=== PATIENT | male | born 1970 | race Caucasian/White ===

== ENCOUNTER 2016-06-01 11:48 | Emergency (ER) | payer BC ==
[~2016-06-01] VITALS: Ht 198.1 cm; Wt 115.7 kg
[2016-06-01 13:28] LABS: OBC FLU VALID
[2016-06-01 13:31] LABS: BASO % 0 % (0-3); EOS % 0 % (0-3); HEMATOCRIT 52.1 % (39.0-53.0); HEMOGLOBIN 17.8 g/dL (13.0-17.5); LYMPH # 0.7 x10^3/uL (1.0-4.8); LYMPH % 10 % (24-48); MEAN CORPUSCULAR HEMOGLOBIN 30 pg (25-35); MEAN CORPUSCULAR HGB CONC 34 g/dL (31-37); MEAN CORPUSCULAR VOLUME 88 fL (79-100); MONO % 8 % (0-9); NEUT % 82 % (31-73); PLATELET COUNT 144 x10^3/uL (140-400); RED BLOOD COUNT 5.91 x10^6/uL (4.30-5.70); RED CELL DISTRIBUTION WIDTH 15.9 % (11.5-14.5); WHITE BLOOD COUNT 7.7 x10^3/uL (4.0-11.0)
--- NOTE | 2016-06-01 13:38 | RAD ---
Exam: AP portable chest. History: Chest pain, cough, shortness of breath. Comparison: None. Findings: The heart and mediastinal structures are within normal limits for size. Lungs are without infiltrate. No pneumothorax or pleural effusion is appreciated. Right nipple ring is seen. Impression: 1. No acute cardiopulmonary process.
[2016-06-01] MEDS ORDERED: IV NORMAL SALINE 1000ML BAG 1,000 ML IV ONE (13:45)
[2016-06-01] MEDS ORDERED: ACETAMINOPHEN 500 MG TABLET PO ONE (13:45)
[2016-06-01 13:50] LABS: CREATININE 1.3 mg/dL (0.7-1.3); GFR 59.2; POTASSIUM 4.4 mmol/L (3.5-5.1)
[2016-06-01 13:54] LABS: ALBUMIN 3.5 g/dL (3.4-5.0); ALBUMIN/GLOBULIN RATIO 1.1 (1.0-1.7); TOTAL PROTEIN 6.7 g/dL (6.4-8.2)
[2016-06-01 14:05] LABS: NEGATIVE OBC MONO NEG; POSITIVE OBC MONO POS
[2016-06-01 14:53] LABS: NEGATIVE OBC STREP NEG; POSITIVE OBC STREP POS
--- NOTE | 2016-06-01 14:59 | EKG ---
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
[2016-06-01 15:02] LABS: BILIRUBIN,URINE NEGATIVE (NEG); GLUCOSE,URINE NEGATIVE (NEG); NITRITE,URINE NEGATIVE (NEG); PH,URINE 7.5; PROTEIN,URINE NEGATIVE (NEG-TRACE)
[2016-06-01 15:13] LABS: BARBITURATES NEG (NEG); BENZODIAZEPINES NEG (NEG); CANNABINOIDS NEG (NEG); COCAINE NEG (NEG); METHADONE NEG (NEG); OPIATES POS (NEG); PHENCYCLIDINE NEG (NEG)
[2016-06-01 15:15] LABS: ETHANOL, URINE NEG (NEG)
--- NOTE | 2016-06-01 15:19 | ED.ADGEN ---
Past Medical History Past Medical History: Other Additional Past Medical Histor: chronic back pain Past Surgical History: No Surgical History Alcohol Use: Occasionally Drug Use: None Adult General Chief Complaint Chief Complaint: FEVER HPI HPI Patient is a 45 year old man, history of chronic back pain, hepatitis that was treated 5 years ago, who presents to the emergency department with complaint of about a week of body aches, nonproductive cough, fever, chills, headache, and generalized malaise. Patient was seen by his primary care provider last week, at that time he was checked for influenza and strep throat, and was started on a course of antibiotics and Flonase. Patient also received a "allergy shot", which he describes as a steroid injection. Patient states he was feeling better earlier this week, but then over the past several days the symptoms have returned. states he had a temperature of 103.0 at home, this was early this morning, he did take acetaminophen, early this morning, has not taken any medications for the past 8-10 hours, it is 99.5 currently. Injury without issue , although there is something of a decreased appetite, no GI or complaints. Patient states that he "is always red", when he works outside, is noted to have redness to his skin throughout his entire body, denies any vesicular lesions, involvement of the hands or feet, involvement of the mucosa, any recent travel or surgery, any difficulty with breathing or swallowing, any sick contacts or exposures. Review of Systems Review of Systems Constitutional: Fever, 103.0, this morning, occasional chills, generalized malaise. Eyes: Denies change in visual acuity. [] HENT: Denies nasal congestion or sore throat. [] Respiratory: Denies cough or shortness of breath. [] Cardiovascular: Denies chest pain or edema. [] GI: Denies abdominal pain, nausea, vomiting, bloody stools or diarrhea. [] : Denies dysuria. [] Musculoskeletal: Denies back pain or joint pain. [] Integument: Denies rash. [] Neurologic: Denies headache, focal weakness or sensory changes. [] Endocrine: Denies polyuria or polydipsia. [] Lymphatic: Denies swollen glands. [] Psychiatric: Denies depression or anxiety. [] Current Medications Current Medications Current Medications Medications (Trade) Dose Ordered Sig/Mac Start Time Stop Time Status Last Admin Dose Admin Acetaminophen (Tylenol) 1,000 mg 1X ONCE 06/01/16 13:45 06/01/16 14:33 DC 06/01/16 14:42 1,000 MG Sodium Chloride (Iv Sodium Chloride 0.9% 1000ml Bag) 1,000 ml @ 1,000 mls/hr 1X ONCE 06/01/16 13:45 06/01/16 14:44 DC 06/01/16 14:42 1,000 MLS/HR Allergies Allergies Allergies Coded Allergies Type Severity Reaction Last Updated Verified No Known Drug Allergies 06/01/16 No Physical Exam Physical Exam Constitutional: Well developed, well nourished, no acute distress, non-toxic appearance. [] HENT: Normocephalic, atraumatic, bilateral external ears normal, oropharynx moist, no oral exudates, nose normal. [] Eyes: PERRLA, EOMI, conjunctiva normal, no discharge. [] Neck: Normal range of motion, no tenderness, supple, no stridor. [] Cardiovascular:Heart rate regular rhythm, no murmur, S1, S2, rubs or gallops. [] Lungs & Thorax: Bilateral breath sounds clear to auscultation, no wheezing, rhonchi, rales. Patient cough during examination. [] Abdomen: Bowel sounds normal, soft, no tenderness, no rebound, rigidity, no guarding, no masses, no pulsatile masses. [] Skin: Warm, dry, patient with redness from head to toe, no lesions identified, no involvement of palms or soles or mucosa. Back: No tenderness, no CVA tenderness. [] Extremities: No tenderness, no cyanosis, no clubbing, ROM intact, no edema. [] Neurologic: Alert and oriented X 3, normal motor function, normal sensory function, no focal deficits noted. [] Psychologic: Affect normal, judgement normal, mood normal. [] Current Patient Data Vital Signs Vital Signs Date Time Temp Pulse Resp B/P Pulse Ox O2 Delivery O2 Flow Rate FiO2 06/01/16 12:08 99.3 100 22 126/86 94 Room Air 99.3 Lab Values Laboratory Tests Test 06/01/16 12:56 06/01/16 13:19 06/01/16 13:25 06/01/16 14:00 Influenza Type A Antigen Negative (NEGATIVE) Influenza Type B Antigen Negative (NEGATIVE) Urine Collection Type Unknown Urine Color Yellow Urine Clarity Clear Urine pH 7.5 Urine Specific [place] 1.020 Urine Protein Negativemg/dL (NEG-TRACE) Urine Glucose (UA) Negativemg/dL (NEG) Urine Ketones (Stick) Negativemg/dL (NEG) Urine Blood Negative (NEG) Urine Nitrite Negative (NEG) Urine Bilirubin Negative (NEG) Urine Urobilinogen Dipstick 1.0mg/dL (0.2 mg/dL) Urine Leukocyte Esterase Negative (NEG) Urine RBC 3-5/HPF (0-2) Urine WBC 1-4/HPF (0-4) Urine Bacteria 0/HPF (0-FEW) Urine Mucus Mod/LPF Urine Opiates Screen Pos (NEG) Urine Methadone Screen Neg (NEG) Urine Barbiturates Neg (NEG) Urine Phencyclidine Screen Neg (NEG) Urine Amphetamine/Methamphetamine Neg (NEG) Urine Benzodiazepines Screen Neg (NEG) Urine Cocaine Screen Neg (NEG) Urine Cannabinoids Screen Neg (NEG) Urine Ethyl Alcohol Neg (NEG) White Blood Count 7.7x10^3/uL (4.0-11.0) Red Blood Count 5.91x10^6/uL (4.30-5.70) H Hemoglobin 17.8g/dL (13.0-17.5) H Hematocrit 52.1% (39.0-53.0) Mean Corpuscular Volume 88fL (79-100) Mean Corpuscular Hemoglobin 30pg (25-35) Mean Corpuscular Hemoglobin Concent 34g/dL (31-37) Red Cell Distribution Width 15.9% (11.5-14.5) H Platelet Count 144x10^3/uL (140-400) Neutrophils (%) (Auto) 82% (31-73) H Lymphocytes (%) (Auto) 10% (24-48) L Monocytes (%) (Auto) 8% (0-9) Eosinophils (%) (Auto) 0% (0-3) Basophils (%) (Auto) 0% (0-3) Neutrophils # (Auto) 6.3x10^3uL (1.8-7.7) Lymphocytes # (Auto) 0.7x10^3/uL (1.0-4.8) L Monocytes # (Auto) 0.6x10^3/uL (0.0-1.1) Eosinophils # (Auto) 0.0x10^3/uL (0.0-0.7) Basophils # (Auto) 0.0x10^3/uL (0.0-0.2) Sodium Level 138mmol/L (136-145) Potassium Level 4.4mmol/L (3.5-5.1) Chloride Level 101mmol/L (98-107) Carbon Dioxide Level 30mmol/L (21-32) Anion Gap 7 (6-14) Blood Urea Nitrogen 19mg/dL (8-26) Creatinine 1.3mg/dL (0.7-1.3) Estimated GFR (Cockcroft-Gault) 59.2 BUN/Creatinine Ratio 15 (6-20) Glucose Level 119mg/dL (70-99) H Calcium Level 9.0mg/dL (8.5-10.1) Total Bilirubin 1.0mg/dL (0.2-1.0) Aspartate Amino Transferase (AST) 25U/L (15-37) Alanine Aminotransferase (ALT) 33U/L (16-63) Alkaline Phosphatase 43U/L (46-116) L Troponin I Quantitative < 0.017ng/mL (0.000-0.055) VM-Cbf-A-Type Natriuretic Peptide 258pg/mL (0-124) H Total Protein 6.7g/dL (6.4-8.2) Albumin 3.5g/dL (3.4-5.0) Albumin/Globulin Ratio 1.1 (1.0-1.7) Heterophil Agglutinins Negative (NEGATIVE) Lactic Acid Level 1.1mmol/L (0.4-2.0) Test 06/01/16 14:30 Group A Streptococcus Rapid Negative (NEGATIVE) Laboratory Tests 06/01/16 13:25 Laboratory Tests 06/01/16 13:25 EKG EKG EC: Sinus rhythm, heart rate 84 bpm, upright axis, QTC of 369, KS 154, QRS 86, no ST elevations or depressions, no evidence of acute ST abnormalities. As interpreted by me. [] Radiology/Procedures Radiology/Procedures [] [facility] [address] [place] [address] IMAGING REPORT Signed PATIENT: TATE GRACE ACCOUNT: [id number] : 1970 LOCATION: ER AGE: 45 SEX: M EXAM STATUS: REG ER ORD. PHYSICIAN: SKYLAR ALY DO REASON: CP/Cough/SOB PROCEDURE: PORTABLE CHEST 1V Exam: AP portable chest. History: Chest pain, cough, shortness of breath. Comparison: None. Findings: The heart and mediastinal structures are within normal limits for size. Lungs are without infiltrate. No pneumothorax or pleural effusion is appreciated. Right nipple ring is seen. Impression: 1. No acute cardiopulmonary process. DICTATED and SIGNED BY: ZAID AZAR MD DATE: 06/01/16 1332 CC: SKYLAR ALY DO; PRETTY ROYAL APRN ~ Course & Med Decision Making Course & Med Decision Making Pertinent Labs and Imaging studies reviewed. (See chart for details) Patient complaining of generalized body aches and malaise, is afebrile in the emergency department 99.5 orally, without any antipyretics in the past 10 hours. Chest x-ray unremarkable, laboratory studies reveal no leukocytosis or shift, lactic is within normal limits. On reevaluation, patient states that his headache and body aches are improved after receiving Tylenol, although he states he still feels "pretty crappy". I did speak with Dr. Bartlett of infectious disease, viewed patient's history, presentation, laboratory studies. Patient did not relate any concerning history or factors, laboratory studies not reveal any evidence of acutely concerning findings or inflammation for the patient's symptoms at this time. As stated, patient has no neurologic complaints , no neck stiffness or nuchal rigidity, no indications for lumbar puncture or additional evaluation at this time in the emergency department. Dr. Bartlett is in agreement that the patient may be recovering from a viral syndrome, recommends adding an erythrocyte sedimentation rate and procalcitonin, which he states can be trended as an outpatient with the patient's primary care provider as needed, and additional referral as needed. I did discuss this with patient and at bedside, they're agreeable this plan. I stated patient as he is feeling somewhat better, ambulating difficulty, and denies any additional complaints or concerns. Patient discharged home in stable condition with plan to follow-up with his primary care provider, to continue supportive care at home , and to return to the ED if any new or concerning symptoms develop. Dragon Disclaimer Dragon Disclaimer This electronic medical record was generated, in whole or in part, using a voice recognition dictation system. Departure Impression: Primary Impression: Fever Additional Impression: Malaise and fatigue Disposition: HOME, SELF-CARE Condition: IMPROVED Problem Qualifiers SKYLAR ALY DO Jun 01, 2016 15:19
[2016-06-01 15:21] LABS: BACTERIA,URINE 0 /HPF (0-FEW)
[2016-06-01 16:30] VITALS: BP 121/75
== END 2016-06-01 16:38 | disposition home or self-care (01) ==
LOC: ER 11:48
DX: R50.9 Fever, unspecified (principal); R53.81 Other malaise; M79.1 Myalgia; G89.29 Other chronic pain; M54.9 Dorsalgia, unspecified; R51 Headache; R05 Cough; R07.89 Other chest pain
CPT/HCPCS: 36415; 71010; 80053; 80305; 80320; 81001; 83605; 83880; 84145; 84484; 85027; 85651; 86308; 87070; 87804; 87880; 93005; 96360; 99285; J7030; G0481